=== PATIENT | female | born 1980 | race Two or more races ===

== ENCOUNTER 2017-08-13 23:50 | Emergency (ER) | payer SELFPAY ==
[~2017-08-13] VITALS: Ht 154.9 cm; Wt 81.6 kg
[2017-08-14] MEDS ORDERED: PREDNISONE20 MG ORAL (00:09)
[2017-08-14 00:10] VITALS: BP 110/68
[2017-08-14] MEDS ORDERED: REGLAN10 MG ORAL (00:41)
[2017-08-14] MEDS ORDERED: BENADRYL25 M3 PO (00:41)
[2017-08-14] MEDS ORDERED: Acetaminophen 500mg (ES) tab ORAL ONE (00:45)
--- NOTE | 2017-08-14 00:51 | Emergency Room Report ---
History of Present Illness General Chief Complaint: Headache Source: Patient Present Illness HPI 37-year-old female with a history of headaches, sounds like she's been diagnosed with pseudotumor cerebri in the past, is currently on steroids for that, and following with an ceo and co founder, comes in for occipital headache since this afternoon, gradual onset, no blurred vision, no fevers, no vomiting, no numbness, tingling, weakness, no other symptoms, has not tried any medications for her headache yet today Allergies: Coded Allergies: No Known Allergies (Unverified , 08/14/17) Patient History Past Medical History: see triage record Last Menstrual Period: 08/06/17 Now: No Reviewed Nursing Documentation: PMH: Agreed; PSxH: Agreed Nursing Documentation-PMH Past Medical History: No History, Except For Hx Diabetes: Yes Review of Systems All Other Systems: negative except mentioned in HPI Physical Exam Vital Signs Date Time Temp Pulse Resp B/P (MAP) Pulse Ox O2 Delivery O2 Flow Rate FiO2 08/14/17 00:06 98.7 67 16 110/68 99 Room Air 98.8 Sp02 EP Interpretation: reviewed, normal General Appearance: no apparent distress, alert, non-toxic Head: normocephalic Eyes: bilateral eye normal inspection, bilateral eye PERRL, bilateral eye EOMI ENT: normal ENT inspection, hearing grossly normal, normal pharynx, no angioedema, normal voice, moist mucus membranes Neck: normal inspection, full range of motion, supple, supple/symm/no masses Respiratory: chest non-tender, lungs clear, normal breath sounds, chest symmetrical, palpation of chest normal Cardiovascular #1: normal peripheral pulses, regular rate, rhythm Cardiovascular #2: 2+ radial (R), 2+ radial (L) Gastrointestinal: normal inspection, non tender, soft, no mass, no guarding, no rebound Rectal: deferred Genitourinary: normal inspection, no CVA tenderness Musculoskeletal: back normal, gait/station normal, normal range of motion, non- tender, no calf tenderness Neurologic: alert, responsive, residential driver III-XII nml as tested, motor strength/tone normal, sensory intact, speech normal Psychiatric: judgement/insight normal, mood/affect normal Skin: normal color, no rash, warm/dry, normal turgor Lymphatic: no adenopathy Medical Decision Making Diagnostic Impression: Primary Impression: Headache ER Course Patient's symptoms consistent with normal headache, doubt severe sequelae of pseudotumor cerebra, patient already getting therapy for that, we'll recommend she follow up with her primary ceo and co founder for evaluation, discharged home Last Vital Signs Date Time Temp Pulse Resp B/P (MAP) Pulse Ox O2 Delivery O2 Flow Rate FiO2 08/14/17 00:44 98.8 08/14/17 00:10 67 16 110/68 99 Room Air Disposition: HOME, SELF-CARE Condition: Stable Scripts Diphenhydramine HCl (Benadryl) 25 Mg Capsule 25 MG PO TID PRN for For Headache, #10 CAP Prov: DAIN FRASER M.D 08/14/17 Metoclopramide Hcl* (REGLAN*) 10 Mg Tablet 10 MG ORAL THREE TIMES A DAY PRN for For Headache, #10 TAB Prov: DAIN FRASER M.D 08/14/17 Referrals: NOT CHOSEN IPA/,REFERRING (PCP) Patient Instructions: General Headache Without Cause DAIN FRASER M.D August 14, 2017 00:51
[2017-08-14 01:05] VITALS: BP 110/68
== END 2017-08-14 01:05 | disposition home or self-care (01) ==
LOC: EMR 08-14 00:29
DX: R51 Headache (principal); E11.9 Type 2 diabetes mellitus without complications
CPT/HCPCS: 99284